=== PATIENT | male | born 2000 | race Caucasian/White ===

== ENCOUNTER 2018-09-03 20:23 | Emergency (ER) | payer MEDICAID, OTHER ==
[~2018-09-03] VITALS: Ht 160 cm; Wt 54.4 kg
[2018-09-03 20:25] VITALS: BP 130/77
--- NOTE | 2018-09-03 21:14 | ER.PDOC ---
General Chief Complaint: General Complaint Stated Complaint: FEVER,HEADACHE,TINGLING IN ARMS Time seen by MD: 20:50 Source: patient, family Exam Limitations: no limitations History of Present Illness Initial Comments Pt has a h/o cough, fever, headache for several days. Has been seen in [place] by his own doctor who diagnosed him with a UTI and a bronchitis and put him on cipro. He has spina bifida and a shunt since age 12 NO HEADACHE today Timing/Duration: gradual Severity: moderate Associated Symptoms: fever/chills, productive cough, headache Prior symptoms/Treatment: Recenly Seen, Treated by Doctor Allergies: Coded Allergies: cephalexin (Verified Allergy, Unknown, Hives, 09/03/18) latex (Verified Allergy, Unknown, Anaphylaxis Shock, 09/03/18) Constitutional: fever EENTM: no symptoms reported Respiratory: see HPI, cough Cardiovascular: no symptoms reported Gastrointestinal: no symptoms reported Genitourinary: no symptoms reported Musculoskeletal: no symptoms reported Skin: no symptoms reported Psychiatric/Neurological: no symptoms reported Endocrine: no symptoms reported Hematologic/Lymphatic: no symptoms reported Past Medical History Medical History: other Surgical History: tonsillectomy, other Social History Smoking: cigarettes, less than 1 pack/day Alcohol Use: rarely Drug Use: none Physical Exam General Appearance: alert, no distress Eye: eyes nml inspection, lids & conjunct. nml, PERRL, no nystagmus Ear: ear nml Nose: nose nml Throat: pharynx nml, airway nml Neck: nml inspection, supple Respiratory: no resp.distress, rhonchi (scattered) Abdomen: non-tender, no organomegaly Results/Orders Results/Orders Laboratory Tests Test 09/03/18 21:23 09/03/18 21:27 Urine Collection Type [facility] Urine Color YELLOW (YELLOW) Urine Appearance CLEAR (CLEAR) Urine Bilirubin NEGATIVE MG/DL (NEGATIVE) Urine Ketones 50 mg/dL (NEGATIVE) Urine Specific [place] 1.010 (1.005-1.035) Urine pH 6.5 (5.0-6.0) Urine Protein NEGATIVE (NEGATIVE) Urine Urobilinogen NORMAL (NEGATIVE) Urine Nitrate NEGATIVE (NEGATAIVE) Urine Leukocyte Esterase NEGATIVE (NEGATIVE) Urine Blood NEGATIVE (NEGATIVE) Urine Glucose NORMAL (NEGATIVE) White Blood Count 17.4 10^3/uL (4.5-12.5) Red Blood Count 4.81 10^6/uL (4.50-5.90) Hemoglobin 13.2 g/dL (13.2-15.6) Hematocrit 39.9 % (37.0-53.0) Mean Corpuscular Volume 83.0 fL (78-100) Mean Corpuscular Hemoglobin 27.4 pg (26-34) Mean Corpuscular Hemoglobin Concent 33.1 g/dL (33-37) Red Cell Distribution Width 13.3 % (11.5-14.5) Platelet Count 485 10^3/uL (150-400) Mean Platelet Volume 9.1 fL (7.8-11.0) Neutrophils (%) (Auto) 77.3 % (41.0-85.0) Lymphocytes (%) (Auto) 10.2 % (24.0-44.0) Monocytes (%) (Auto) 11.5 % (5.0-12.0) Neutrophils # (Auto) 13.5 10^3/uL (1.8-8.0) Lymphocytes # (Auto) 1.8 10^3/uL (1.2-5.2) Monocytes # (Auto) 2.0 10^3/uL (0.0-0.4) Absolute Immature Granulocyte (auto 0.06 10^3 u/L (0-2) Eosinophils % 0.2 % (0.0-5.0) Basophils % 0.5 % (0.0-0.2) Basophils # 0.1 10^3/uL (0.0-0.1) Eosinophil Count 0.0 10^3/uL (0.0-0.2) Sodium Level 136 mmol/L (132-145) Potassium Level 3.2 mmol/L (3.6-5.2) Chloride Level 97.0 mmol/L (96-109) Carbon Dioxide Level 25.2 mmol/L (20.0-32) Anion Gap 17.0 Blood Urea Nitrogen 10 mg/dL (7-18) Creatinine 0.98 mg/dL (0.59-1.40) Estimated GFR () 119.2 (>/=60) BUN/Creatinine Ratio 10.0 Glucose Level 110 mg/dL (70-110) Calcium Level 9.1 mg/dL (8.4-10.5) Total Bilirubin 0.8 mg/dL (0.2-1.0) Aspartate Amino Transf (AST/SGOT) 15 U/L (0-35) Alanine Aminotransferase (ALT/SGPT) 17 U/L (12-78) Alkaline Phosphatase 107 U/L (50-136) Total Protein 7.6 g/dL (6.4-8.2) Albumin 3.1 g/dL (3.4-5.0) Globulin 4.5 Percent Immature Gran (Cell Imm) 0.30 % (0.00-0.50) Departure Time of Disposition: 21:58 Disposition: 01 HOME, SELF-CARE Impression: Primary Impression: UTI (urinary tract infection) Additional Impressions: Bronchitis Smoking addiction Needs smoking cessation education Condition: Stable Patient Instructions: Acute Bronchitis, Rlbe-re-Tboh, Smoking Cessation, Smoking Cessation, Tips For Success, Smoking Hazards, Urinary Tract Infection Referrals: BRENNEN GLEASON (PCP) PRIMARY CARE PROVIDER Duration or Time Spent with Pa: 20 Problem Qualifiers YOBANY ZARATE MD Sep 03, 2018 21:14
--- NOTE | 2018-09-03 21:19 | NUR ---
RESTROOM PT REMAINS IN RESTROOM FOR URINE SPECIMEN. PT HAS BEEN CHECKED ON SEVERAL TIMES, DECLINES ASSIST. CONTINUE TO MONITOR.
--- NOTE | 2018-09-03 21:23 | NUR ---
URINE PATIENT FINISHED IN BATHROOM AND WAS ABLE TO OBTAIN UA. UA GIVEN TO LAB.
[2018-09-03 21:25] VITALS: BP 124/70
[2018-09-03 21:34] LABS: BASOPHIL # 0.1 10^3/uL (0.0-0.1); BASOPHIL % 0.5 % (0.0-0.2); EOSINOPHIL % 0.2 % (0.0-5.0); HEMOGLOBIN 13.2 g/dL (13.2-15.6); LYMPHOCYTES # 1.8 10^3/uL (1.2-5.2); LYMPHOCYTES % 10.2 % (24.0-44.0); MEAN CELL HGB 27.4 pg (26-34); MEAN CELL HGB CONCENTRATION 33.1 g/dL (33-37); MEAN PLATELET VOLUME 9.1 fL (7.8-11.0); MONOCYTES % 11.5 % (5.0-12.0); NEUTROPHIL # 13.5 10^3/uL (1.8-8.0); NEUTROPHILS % 77.3 % (41.0-85.0); RED CELL DISTRIBUTION WIDTH 13.3 % (11.5-14.5); WHITE BLOOD CELL 17.4 10^3/uL (4.5-12.5)
--- NOTE | 2018-09-03 21:36 | NUR ---
XRAY XRAY AT BEDSIDE
[2018-09-03 21:48] LABS: BILIRUBIN,URINE NEGATIVE (NEGATIVE); UROBILINOGEN,URINE NORMAL (NEGATIVE)
[2018-09-03 21:50] LABS: APPEARANCE,URINE CLEAR (CLEAR); UA COLOR YELLOW (YELLOW)
--- NOTE | 2018-09-03 21:51 | DIREP ---
PROCEDURE:CHEST 1 VIEW COMPARISON:None. INDICATIONS:Cough, fever FINDINGS: LUNGS/PLEURA:No significant pulmonary parenchymal abnormalities. No effusions. VASCULATURE:Normal. Unremarkable pulmonary vasculature. CARDIAC:Normal. No cardiac silhouette abnormality or cardiomegaly. MEDIASTINUM:Normal. No visible mass or adenopathy. BONES:Normal. No fracture or visible bony lesion. OTHER:Shunt catheter over the right side of the neck, chest and abdomen. CONCLUSION: 1. No acute cardiopulmonary abnormalities. 2. Shunt catheter over the right side of the neck, chest and abdomen. Dictated by: Mark Callaway M.D. on 09/03/2018 at 09:49 PM
[2018-09-03 21:55] LABS: CALCIUM 9.1 mg/dL (8.4-10.5); CARBON DIOXIDE 25.2 mmol/L (20.0-32)
[2018-09-03 22:00] LABS: BAND NEUTROPHILS 11 % (2-6); LYMPHOCYTE 14 % (25-36); MONOCYTE 12 % (3-9); SEGMENTED NEUTROPHILS 62 % (28-78)
[2018-09-03 22:01] LABS: BASOPHIL 1 % (0-2)
[2018-09-03 22:18] VITALS: BP 124/70
== END 2018-09-03 22:15 | disposition home or self-care (01) ==
LOC: ER 20:23
DX: N39.0 Urinary tract infection, site not specified (principal); J40 Bronchitis, not specified as acute or chronic; F17.210 Nicotine dependence, cigarettes, uncomplicated; Z88.0 Allergy status to penicillin; Z91.040 Latex allergy status; Z90.89 Acquired absence of other organs
CPT/HCPCS: 36415; 71045; 80053; 81002; 85025; 99284